=== PATIENT | male | born 1950 | race Native Hawaiian/Other Pacific Islander ===

== ENCOUNTER 2023-05-06 15:45 | Outpatient (CLI) | payer OTHER, MEDICARE ==
[2023-05-06 16:39] LABS: POTASSIUM 4.2 mmol/L (3.6-5.2)
[2023-05-06 16:42] LABS: PLATELET COUNT 117 K/uL (142-355)
== END 2023-05-06 19:16 | disposition home or self-care (01) ==
LOC: LAB 15:45
PROVIDERS: ATTEND Internal Medicine
DX: E03.8 Other specified hypothyroidism (principal); M10.9 Gout, unspecified; I25.10 Atherosclerotic heart disease of native coronary artery without angina pectoris
CPT/HCPCS: 80053; 80061; 81000; 84439; 84443; 84550; 85027